=== PATIENT | male | born 1990 | race American Indian/Alaskan Native ===

== ENCOUNTER 2016-07-01 13:26 | Emergency (ER) | payer OTHER ==
[2016-07-01 14:24] VITALS: BP 132/84; PULSE 74; RESP 20; TEMP 97.5; O2SAT 99
--- NOTE | 2016-07-01 14:41 | ED PDOC ---
HPI: Skin/Bite Injury Time Seen by Provider: 07/01/16 14:38 Chief Complaint (Nursing): Abnormal Skin Integrity Chief Complaint (Provider): upper lip laceration History Per: Patient History/Exam Limitations: no limitations Onset/Duration Of Symptoms: Hrs (x 2) Current Symptoms Are (Timing): Still Present Additional Complaint(s): Jerman Daugherty is a 26 year old male, with no previous medical history, who presents to the ED for the evaluation of an upper lip laceration he sustained 2 hours prior to arrival. Pt reports to falling face first which caused the laceration. Pt denies any head injury, loss of consciousness, nausea, vomiting or loss of teeth. Pt denies any additional complaints at this time. Pt reports tetanus is up to date. PMD: none provided Past Medical History Reviewed: Historical Data, Nursing Documentation, Vital Signs Vital Signs: Last Vital Signs Temp 97.5 F L 07/01/16 14:24 Pulse 74 07/01/16 14:24 Resp 20 07/01/16 14:24 BP 132/84 07/01/16 14:24 Pulse Ox 99 07/17/16 17:48 - Medical History PMH: No Chronic Diseases - Surgical History Surgical History: No Surg Hx - Family History Family History: States: Unknown Family Hx - Home Medications Home Medications: Ambulatory Orders Medication Instructions Recorded Cephalexin [cephalexin] 500 mg PO BID #20 cap 07/01/16 Emollient Combination No.46 20 gm TP DAILY #1 cream..g. 07/01/16 [Mederma] - Allergies Allergies/Adverse Reactions: Allergies Allergy/AdvReac Type Severity Reaction Status Date / Time No Known Allergies Allergy Verified 07/01/16 14:24 Review of Systems ROS Statement: Except As Marked, All Systems Reviewed And Found Negative Gastrointestinal: Negative for: Nausea, Vomiting Skin: Positive for: Other (laceration upper lip) Neurological: Negative for: Other (head injury or loss of consciousness) Physical Exam - Reviewed Nursing Documentation Reviewed: Yes Vital Signs Reviewed: Yes - Physical Exam Appears: Positive for: Well, Non-toxic, No Acute Distress Head Exam: Positive for: ATRAUMATIC, NORMAL INSPECTION, NORMOCEPHALIC Cardiovascular/Chest: Positive for: Regular Rate, Rhythm Respiratory: Positive for: CNT, Normal Breath Sounds Neurologic/Psych: Positive for: Alert, Oriented Comments: 2.75 cm partial thickness 0.5 cm in width on upper lip - ECG O2 Sat by Pulse Oximetry: 99 (RA) Pulse Ox Interpretation: Normal Medical Decision Making Medical Decision Making: Initial Impression: lip injury Initial plan: * lidocaine 1% * laceration repair * reevaluation PROCEDURE: LACERATION REPAIR Performed by the emergency provider Location: upper lip Length: 2.75 cm partial thickness 0.5 cm in width on upper lip Description: clean wound edges Distal CMS: Normal. No deficits. Neurovascularly intact. Anesthesia: Lidocaine 1% Preparation: The wound was cleaned with NS and Betadyne. The area was prepped and draped inthe usual sterile fashion. Exploration: The wound was explored and no foreign bodies were found. Procedure: 2 layers of 5-0 absorbable running stitches in place with good approximation achieved, steri strips applied. Post-Procedure: Good closure and hemostasis. The patient tolerated the procedure Progress: Patient will be discharged w/ instructions for wound care. Advised to f/u with clinic/PMD in a few days for re-evaluation and wound check. He was advised to return immediately for any new or worsening symptoms. All questions were answered. Patient agreeable with plan. Scribe Attestation: Documented by Ronit Miles, acting as a scribe for Moon Finch PA-C. Provider Scribe Attestation: All medical record entries made by the Scribe were at my direction and personally dictated by me. I have reviewed the chart and agree that the record accurately reflects my personal performance of the history, physical exam, medical decision making, and the department course for this patient. I have also personally directed, reviewed, and agree with the discharge instructions and disposition Disposition - Clinical Impression Clinical Impression: Laceration - Disposition Disposition Time: 15:40 Condition: STABLE Prescriptions: Cephalexin [cephalexin] 500 mg PO BID #20 cap Emollient Combination No.46 [Mederma] 20 gm TP DAILY #1 cream..g. Instructions: Laceration (ED), Skin Adhesive Care (ED), Care For Your Absorbable Stitches (ED), Facial Laceration (ED) Laceration - Laceration Repair lip laceration Description Of Wound: Irregular (2.75 cm partial thickness 0.5 cm wide) Wound Cleansed With: Sterile Saline (100 ml) Anesthesia: Lidocaine 1% Wound Examination: Irrigated With Saline Wound Closure: Steri Strips (x2 ), Suture Suture Technique And Material Used: Running, Vicryl (absorbable ) Wound Complexity: Intermediate
== END 2016-07-01 15:40 | disposition home or self-care (01) ==
LOC: H.ER 13:26
DX: S01.511A Laceration without foreign body of lip, initial encounter (principal); W19.XXXA Unspecified fall, initial encounter; Y92.89 Other specified places as the place of occurrence of the external cause